=== PATIENT | female | born 1990 | race Caucasian/White ===

== ENCOUNTER 2017-02-13 23:12 | Emergency (ER) | payer MEDICAID ==
[~2017-02-13] VITALS: Ht 162.6 cm; Wt 149.7 kg
[~2017-02-13 23:12] MED LIST: ALBUTEROL2 PUFFS/17 IN; BACLOFEN 10MG T10 MG PO; BIRTH CONTROL PO; CIPRO 500MG TA500 MG PO; DEPO-PROVER150 MG/M1 IM; FLEXERIL10 MG PO; FLUTICASONE 50M16 GM; GABAPENTIN 600600 MG PO; IBUPROFEN400 MG PO; LEVETIRACETAM250 MG PO; LORTAB 5/500 501 TAB PO; MELOXICAM15 MG PO; METHOCARBAMOL500 MG PO; MONONESSA 35 MC1 TA1 PO; MOTRIN800 MG PO; NORFLEX100 MG PO; OMEPRAZOLE40 MG PO; PREDNISONE 10MG10 MG PO; PROPRANOLOL HCL20 MG PO; SINGULAIR 10 MG10 MG PO; SUMATRIPTAN SUC50 MG PO; VISTARIL25 M1 PO; XYZAL5 MG PO
--- NOTE | 2017-02-14 00:38 | Emergency Room Report ---
History of Present Illness Time Seen by [id number] Presenting Problem in Triage Pt arrived:Walked Presenting Problem:PT STATE SHE TRIPPED OVER A CAGE, CAUGHT RIGHT FOOT IN CAGE AND HAS PAIN AND SWELLING IN RIGHT KNEE, LOWER TIBIA, AND ANKLE. PT STATES SHE HAS HAD 2 SURGERIES ON RIGHT ANKLE AND SHE IS CONCERNED ABOUT THIS INJURY CAUSING DAMAGE. Onset of symptoms date/time:02/06/17 or onset unknown for: Treatment Prior to Arrival: TYLENOL, IBUPROFEN, ICE DIGITAL PHOTOGRAPHIC PRINTER Provided by:SELF Sepsis Risk Assessment: Temp: 98.2 B/P: 162/42 MAP: 82 Pulse: 96 Resp: 20 Recent fever? N Clinical Suspician of Infection? N Mental Status: 1 - Regular (Normal Baseline) Sepsis Risk:Possible Sepsis Risk Have you (or family members/close friends) recently traveled outside the [place]? N If Yes, where/when: Have you had exposure to infectious disease within the past month? N TB? Other? Specify: Source patient, RN notes reviewed, family, old records Exam Limitations no limitations Comment rt ankle /lower leg injury about 1 week ago - trip type injury and pt with pain mostly in ankle with prev orif Cardiac Chest Pain Chest pain indicative of cardiac No Timing/Duration this evening Severity moderate ALLERGIES Coded Allergies: No Known Allergies (11/10/16) Home Medications Reported Medications Gabapentin (Gabapentin 600MG) 600 MG PO Q8 Levetiracetam 250 MG PO BID BACLOFEN (Baclofen) 5 MG PO BID Omeprazole (Omeprazole 40MG) 20 MG PO DAILY Meloxicam (Meloxicam 15MG) 15 MG PO DAILY LEVOCETIRIZINE DIHYDROCHLORIDE (Xyzal) 5 MG PO DAILY Montelukast Sodium (Singulair 10MG) 10 MG PO DAILY NORGESTIMATE-ETHINYL ESTRADIOL (Mononessa 28 Tablet) 1 TAB PO DAILY FLUTICASONE PROPIONATE (Fluticasone 50MCG Nasal [place]) 2 SPRAY NA DAILY History Medical History General CAD? No Angina: No SD: No Hypertension? No Hyperlipidemia? No CHF? No DVT? No PE? No COPD? No Asthma? Yes Anemia? No GERD? Yes Gastric ulcers? No GI Bleed? No Hernia? No Thyroid Problems? No Hypothyroidism? No CVA? No Seizures? No Diabetes? No Renal Insuffiency? No End Stage Renal Disease? No UTI? No Stones? No BPH? No GB Disease: No Nephritic Syndrome? No Asplenia? No Hepatitis? No Sickle Cell Disease? No Arthritis? No Migraines? No Cataracts? No Glaucoma? No MRSA? No HIV? No TB? No Anxiety? No Depression? No Cancer? No More? No Immunization Hx DT/Tetanus > 10 YRS Surgical Hx Previous Surgery?Y RIGHT ANKLE X2 WISDOM TEETH BLADDER INHALATION THERAPY AIDE Hx LMP 1-6 Days Ago Social History Smoking Hx Smoker: Light Tobacco Smoker Tobacco: Yes Type Cigarettes Packs/day < 1 Pack Alcohol Alcohol: No Drugs none Review of Systems All Other Systems Reviewed and Negative Constitutional denies fever Eyes denies drainage ENT denies: ear discharge, epistaxis, throat pain. Respiratory denies cough, denies shortness of breath, denies wheezing Cardiovascular denies chest pain, denies syncope Gastrointestinal denies abdominal pain, denies diarrhea, denies vomiting Genitourinary denies: dysuria, frequency, hesitancy, hematuria. Musculoskeletal see HPI, denies back pain, joint pain, joint swelling, denies neck pain Skin denies rash Psychiatric/Neurological denies headache, denies seizure Physical Exam Vital Signs Vital Signs Date Time Temp Pulse Resp B/P Pulse O2 O2 Flow FiO2 Ox Delivery Rate 02/13 2321 98.2 96 20 162/42 99 - WBC >12,000 or <4,000 or 10% bands? 2 or more SIRS Criteria Met? B/P:162/42 MAP:82 Creatinine >2.0? UA output<0.5ml/kg/hr for 2 hrs? Platelet count >100,000? Lactate >2.0mmol/1? INR >1.2 or PTT > than 60 sec? Evidence of Organ Dysfunction? Provider documented clinical suspician of infection? N Sepsis Criteria Count: 2 Sepsis Risk: Possible Sepsis Risk General Appearance no apparent distress Eye Exam - bilateral eye PERRL, bilateral eye EOMI Ear, Nose, Throat normal ENT inspection Neck normal inspection Respiratory Status No: respiratory distress. Cardiovascular regular rate/rhythm Peripheral Pulses Pulses normal Yes Extremities no calf tenderness, tender ant rt ankle with neurovascular ok and rt lower leg with no clinical evid of dvt Strength 4 Upper Ext (L), 4 Upper Ext (R), 4 Lower Ext (L), 4 Lower Ext (R) Neurologic alert, operations general agent II-XII nml as tested, no motor/sensory deficits Reflexes Reflexes normal No Mental status normal mood/affect Skin bruising Medical Decision Making LABS/Meds/Orders Pt receiving controlled substance in ED? No Results/Orders Orders Procedure Date/time Status ANKLE-RT-3 VIEWS 02/14 2344 Active LOWER LEG-RT 02/13 2335 Active KNEE-3 VIEWS-RT 02/13 2335 Active XRAY/CT/US XRAY/CT/US XRAY ankle, knee, leg XR interpretation by reviewed by me Xray Results no fracture seen Departure Departure Time of Disposition 31 Disposition DC Home or Self Care(routine) Clinical Impression Primary Impression: Lower leg injury Qualifiers: Encounter type: initial encounter Laterality: right Qualified Code: S89.91XA - Unspecified injury of right lower leg, initial encounter Secondary Impressions: Right ankle sprain Qualifiers: Encounter type: initial encounter Involved ligament of ankle: unspecified ligament Qualified Code: S93.401A - Sprain of unspecified ligament of right ankle, initial encounter Condition STABLE Referrals MINESH ANDERSON (Family) Patient Instructions DI for Ankle Sprain Additional Instructions advil/tyenol and see your ortho or pcp for follow up Discharge Counseling Counseled pt/family regarding diagnosis, test results, follow up needs ED Critical Care Critical Care No at [id number]
[2017-02-14 00:48] VITALS: BP 149/96
--- NOTE | 2017-02-14 05:27 | RADIOLOGY REPORT PS360 ---
KNEE-3 VIEWS-RT HISTORY: Pain after injury INJURY ORDERING PHYSICIAN: Arvind Jimenez MD PATIENT AGE: 26 years COMPARISON: None FINDINGS: No fracture or dislocation. No lytic or blastic change. Normal mineralization. No significant arthritic changes evident. No other significant findings IMPRESSION: Negative Knee
--- NOTE | 2017-02-14 05:29 | RADIOLOGY REPORT PS360 ---
LOWER LEG-RT HISTORY: Posttraumatic pain INJURY ORDERING PHYSICIAN: Arvind Jimenez MD PATIENT AGE: 26 years COMPARISON: None FINDINGS: No acute fracture or dislocation. There are 2 small anchor screws in the distal fibula. IMPRESSION: No acute finding
--- NOTE | 2017-02-14 05:30 | RADIOLOGY REPORT PS360 ---
ANKLE-RT-3 VIEWS HISTORY: Post traumatic pain FALL X 1WEEK AGO ORDERING PHYSICIAN: Arvind Jimenez MD PATIENT AGE: 26 years COMPARISON: 10/31/2013 FINDINGS: No acute fracture or dislocation. There are 2 anchor screws in the distal fibula. IMPRESSION: 1. No acute finding. 2. Postsurgical change
== END 2017-02-14 00:49 | disposition home or self-care (01) ==
LOC: ER 23:12
DX: S89.91XA Unspecified injury of right lower leg, initial encounter (principal); S93.401A Sprain of unspecified ligament of right ankle, initial encounter; Z79.899 Other long term (current) drug therapy; K21.9 Gastro-esophageal reflux disease without esophagitis; Z72.0 Tobacco use; W01.0XXA Fall on same level from slipping, tripping and stumbling without subsequent striking against object, initial encounter; Y92.009 Unspecified place in unspecified non-institutional (private) residence as the place of occurrence of the external cause